=== PATIENT | male | born 1985 | race African-American/Black ===

== ENCOUNTER 2016-10-19 17:36 | Emergency (ER) | payer SELFPAY ==
[~2016-10-19] VITALS: Ht 175.3 cm; Wt 77.1 kg
[~2016-10-19 17:36] MED LIST: BUSP10TA PO; GABA-586 PO; LORA0.5T PO; TRAZ300T2 PO
[2016-10-19] MEDS ORDERED: IV NORMAL SALINE 1000ML BAG 1,000 ML IV ONE (18:00)
[2016-10-19 18:24] LABS: BASO % 1 % (0-3); EOS % 0 % (0-3); HEMATOCRIT 44.8 % (39.0-53.0); HEMOGLOBIN 15.2 g/dL (13.0-17.5); LYMPH # 0.7 x10^3/uL (1.0-4.8); LYMPH % 10 % (24-48); MEAN CORPUSCULAR HEMOGLOBIN 33 pg (25-35); MEAN CORPUSCULAR HGB CONC 34 g/dL (31-37); MEAN CORPUSCULAR VOLUME 98 fL (79-100); MONO % 7 % (0-9); NEUT % 83 % (31-73); PLATELET COUNT 166 x10^3/uL (140-400); RED BLOOD COUNT 4.58 x10^6/uL (4.30-5.70); RED CELL DISTRIBUTION WIDTH 13.5 % (11.5-14.5)
[2016-10-19 18:41] LABS: CALCIUM 8.9 mg/dL (8.5-10.1); CREATININE 1.2 mg/dL (0.7-1.3); GFR 87.2; POTASSIUM 4.1 mmol/L (3.5-5.1)
--- NOTE | 2016-10-19 18:41 | EKG ---
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
--- NOTE | 2016-10-19 18:53 | PHYS DOC ---
Past Medical History Past Medical History: Alcoholism, Depression, Other Additional Past Medical Histor: insomnia, NEUROPATHY Past Surgical History: No Surgical History Alcohol Use: Heavy Drug Use: None Adult General Chief Complaint Chief Complaint: SHORTNESS OF BREATH HPI HPI Patient is a 30 year old male with a history of bowel collision who presents with complaints of cough and shortness of breath that has been going on for months. He was seen yesterday at the clinic and giving breathing treatments and steroids but he has not had any improvement. Patient doesn't report a recent story is smoking but he used to smoke before. Patient denies any fevers, sick contacts, recent travel, or other symptoms. Review of Systems Review of Systems Constitutional: Denies fever or chills [] Eyes: Denies change in visual acuity, redness, or eye pain [] HENT: Yes to cough, nonbloody Respiratory: Yes to shortness of breath [] Cardiovascular: No chest pain, no swelling of extremities GI: Denies abdominal pain, nausea, vomiting, : Denies dysuria or hematuria [] Musculoskeletal: Denies back pain or joint pain [] Integument: Denies rash or skin lesions [] Neurologic: Denies headache, focal weakness or sensory changes [] Current Medications Current Medications Current Medications Medications (Trade) Dose Ordered Sig/Ela Start Time Stop Time Status Last Admin Dose Admin Info (Do NOT chart on this entry -- for MONITORING) 1 each PRN DAILY PRN 10/19/16 19:00 10/21/16 18:59 Iohexol (Omnipaque 300 Mg/ml) 75 ml 1X ONCE 10/19/16 19:00 10/19/16 19:01 DC 10/19/16 19:13 75 ML Sodium Chloride 1,000 ml @ 1,000 mls/hr 1X ONCE 10/19/16 18:00 10/19/16 18:59 DC 10/19/16 18:45 1,000 MLS/HR Thiamine HCl 100 mg/Sodium Chloride 51 ml @ 102 mls/hr 1X ONCE 10/19/16 19:00 10/19/16 19:29 DC 10/19/16 19:14 102 MLS/HR Allergies Allergies Allergies Coded Allergies Type Severity Reaction Last Updated Verified No Known Drug Allergies 05/09/13 No Physical Exam Physical Exam Constitutional: Well developed, well nourished, no acute distress, non-toxic appearance. [] HENT: Normocephalic, atraumatic, oropharynx moist, no oral exudates, nose normal. [] Eyes: conjunctiva normal, no discharge. [] Neck: Normal range of motion, no tenderness, supple, no stridor. No LAD, no meningeal signs Cardiovascular: Tachycardia, equal pulses, normal perfusion Lungs & Thorax: Bilateral breath sounds clear to auscultation, no tachypnea Abdomen: Bowel sounds normal, soft, no tenderness, no masses, no pulsatile masses. [] Skin: Warm, dry, no erythema, no rash. [] Back: No tenderness, no CVA tenderness. [] Extremities: No tenderness, no cyanosis, no signs of DVT, ROM intact, no edema. [] Neurologic: Alert and oriented X 3, normal motor function, no focal deficits noted. Patient ambulates in the ED with normal gait and without assistance Psychologic: Affect normal, judgement normal, mood normal. [] Current Patient Data Vital Signs Vital Signs Date Time Temp Pulse Resp B/P (MAP) Pulse Ox O2 Delivery O2 Flow Rate FiO2 10/19/16 17:50 98.1 115 22 117/77 (90) 99 Room Air 98.1 Lab Values Laboratory Tests Test 10/19/16 17:47 10/19/16 17:54 O2 Saturation 96 % (92-99) Arterial Blood pH 7.48 (7.35-7.45) H Arterial Blood pCO2 at Patient Temp 22 mmHg (35-46) L Arterial Blood pO2 at Patient Temp 88 mmHg (85-108) Arterial Blood HCO3 16 mmol/L (21-28) L Arterial Blood Base Excess -5 mmol/L (-3-3) L Oxyhemoglobin 95.7 % Methemoglobin 0.5 % (0.0-1.9) Carbon Monoxide, Quantitative 0.2 % (0.0-1.9) FiO2 21.0 White Blood Count 7.0 x10^3/uL (4.0-11.0) Red Blood Count 4.58 x10^6/uL (4.30-5.70) Hemoglobin 15.2 g/dL (13.0-17.5) Hematocrit 44.8 % (39.0-53.0) Mean Corpuscular Volume 98 fL (79-100) Mean Corpuscular Hemoglobin 33 pg (25-35) Mean Corpuscular Hemoglobin Concent 34 g/dL (31-37) Red Cell Distribution Width 13.5 % (11.5-14.5) Platelet Count 166 x10^3/uL (140-400) Neutrophils (%) (Auto) 83 % (31-73) H Lymphocytes (%) (Auto) 10 % (24-48) L Monocytes (%) (Auto) 7 % (0-9) Eosinophils (%) (Auto) 0 % (0-3) Basophils (%) (Auto) 1 % (0-3) Neutrophils # (Auto) 5.8 x10^3uL (1.8-7.7) Lymphocytes # (Auto) 0.7 x10^3/uL (1.0-4.8) L Monocytes # (Auto) 0.5 x10^3/uL (0.0-1.1) Eosinophils # (Auto) 0.0 x10^3/uL (0.0-0.7) Basophils # (Auto) 0.0 x10^3/uL (0.0-0.2) D-Dimer (Orly) 1.04 ug/mlFEU (0.00-0.50) H Sodium Level 140 mmol/L (136-145) Potassium Level 4.1 mmol/L (3.5-5.1) Chloride Level 104 mmol/L (98-107) Carbon Dioxide Level 22 mmol/L (21-32) Anion Gap 14 (6-14) Blood Urea Nitrogen 12 mg/dL (8-26) Creatinine 1.2 mg/dL (0.7-1.3) Estimated GFR (Cockcroft-Gault) 87.2 Glucose Level 101 mg/dL (70-99) H Calcium Level 8.9 mg/dL (8.5-10.1) Laboratory Tests 10/19/16 17:54 Laboratory Tests 10/19/16 17:54 EKG EKG 1800 tachycardia, no stemi, 120[] Radiology/Procedures Radiology/Procedures preliminary read: cardiomegaly, no infltrate/fracture/pneumothorax[] CT: no PE, dissection. Reactive nodes. Cardiomegaly Course & Med Decision Making Course & Med Decision Making Pertinent Labs and Imaging studies reviewed. (See chart for details), discussed with pt. I had long conversation with the patient regarding his chronic symptoms not ongoing for months. I talked to him about his cardiomegaly and my concerns that this may be related to alcohol abuse although I cannot be 100% certain. 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 For the time being I have recommended to the patient he abstain from alcohol, seek primary care and do NOT engage in strenous physical activities including sports. Pt understands and agrees to follow up as directed. List of clinics and resources will be provided to the patient. [] Dragon Disclaimer Dragon Disclaimer This electronic medical record was generated, in whole or in part, using a voice recognition dictation system. Departure Departure Impression: Primary Impression: Alcohol abuse Additional Impressions: Cardiomegaly Cardiomyopathy Disposition: ADMITTED INPATIENT Condition: STABLE Referrals: NO PCP (PCP) please follow up at one of the clinics in the list provided to you. Do not engage in strenous physical activity including sports. Please do not continue to drink alcohol Patient Instructions: Alcohol Problems, Cardiomyopathy Problem Qualifiers Idania LARSEN MD Oct 19, 2016 18:53
[2016-10-19] MEDS ORDERED: THIAMINE 100 MG in IV NORMAL SALINE 50ML 50 ML IV ONE (19:00)
[2016-10-19] MEDS ORDERED: IOHEXOL 300 MG/ML 75 ML VIAL IV ONE (19:00)
[2016-10-19] MEDS ORDERED: CONTRAST GIVEN MC PRN (19:00)
[2016-10-19 19:02] LABS: BASE EXCESS COOX -5 mmol/L (-3-3); CARBON MONOXIDE 0.2 % (0.0-1.9); HCO3 COOX 16 mmol/L (21-28); METHEMOGLOBIN 0.5 % (0.0-1.9); OXYHEMOGLOBIN 95.7 %; PCO2 COOX 22 mmHg (35-46); PH COOX 7.48 (7.35-7.45); PO2 COOX 88 mmHg (85-108); SAT O2 COOX 96 % (92-99); TOTAL HEMOGLOBIN 15.8 g/dL
--- NOTE | 2016-10-19 19:38 | RAD ---
EXAM: CT angiography of the chest with intravenous contrast. HISTORY: Shortness of air. TECHNIQUE: Computed tomographic images of the chest were obtained following the administration of 75 cc Omnipaque 300 intravenous contrast according to angiography protocol. Multiplanar reformatting was performed and 3-dimensional maximum intensity images were obtained. *One or more of the following individualized dose reduction techniques were utilized for this examination: 1. Automated exposure control. 2. Adjustment of the mA and/or kV according to patient size. 3. Use of iterative reconstruction technique. COMPARISON: None. FINDINGS: There is no evidence of pulmonary embolism, with limited evaluation of the lower lobe segmental and subsegmental pulmonary arteries due to suboptimal contrast opacification and respiratory motion. The aorta is normal in caliber. There is a standard aortic arch branching pattern. There is cardiomegaly. There are prominent mediastinal and hilar lymph nodes, likely physiologic or reactive. There is no pneumothorax or pleural effusion. There is no infiltrate or suspicious pulmonary nodule. There is left basilar atelectasis. There is bilateral gynecomastia. No suspicious osseous lesion is seen. The upper abdomen is unremarkable. IMPRESSION: 1. No evidence of pulmonary embolism, with limited evaluation of the segmental and subsegmental pulmonary artery branches due to suboptimal contrast opacification and respiratory motion. 2. Cardiomegaly. 3. Prominent mediastinal and hilar lymph nodes, likely physiologic or reactive. 4. Left lower lobe atelectasis. 5. Gynecomastia. Electronically signed by: Mary Gibson MD (10/19/2016 7:34 PM) [facility]
[2016-10-19 19:42] VITALS: BP 130/92
--- NOTE | 2016-10-20 08:10 | RAD ---
Exam performed: 2 views of the chest. Indication: dyspnea , shortness of breath and cough today Date of Service:10/19/2016 7:47 PM . Comparison : Two-view chest from -. Findings: PA and lateral radiographs of the chest reveals mild cardiomegaly. Pulmonary vascularity is unremarkable. The lungs are clear. No pleural fluid is seen. The visualized osseous structures are unremarkable. Impression: Mild cardiomegaly without acute pulmonary findings.
== END 2016-10-19 20:10 | disposition other institution (70) ==
LOC: ER 17:36
DX: I51.7 Cardiomegaly (principal); F10.10 Alcohol abuse, uncomplicated; I42.9 Cardiomyopathy, unspecified; F32.9 Major depressive disorder, single episode, unspecified; G62.9 Polyneuropathy, unspecified; G47.00 Insomnia, unspecified; Z87.891 Personal history of nicotine dependence
CPT/HCPCS: 36415; 36600; 71020; 71275; 80048; 82805; 85025; 85379; 93005; 96365; 99285; J7030; Q9967

== ENCOUNTER 2016-11-10 03:05 | Emergency (ER) | payer SELFPAY ==
[~2016-11-10] VITALS: Ht 175.3 cm; Wt 77.1 kg
[~2016-11-10 03:05] MED LIST changes: +ALPR0.5T PO; +FOLI1TAB16 PO; +FURO40TA4 PO; +MULT-245 PO; +THIA100T43 PO
[2016-11-10] MEDS ORDERED: BENZONATATE 100 MG CAPSULE. PO ONE (04:00)
[2016-11-10 04:19] LABS: BASO # 0.1 x10^3/uL (0.0-0.2); BASO % 1 % (0-3); EOS % 2 % (0-3); HEMATOCRIT 42.5 % (39.0-53.0); HEMOGLOBIN 13.7 g/dL (13.0-17.5); LYMPH # 2.3 x10^3/uL (1.0-4.8); LYMPH % 29 % (24-48); MEAN CORPUSCULAR HEMOGLOBIN 31 pg (25-35); MEAN CORPUSCULAR HGB CONC 32 g/dL (31-37); MEAN CORPUSCULAR VOLUME 96 fL (79-100); MONO % 7 % (0-9); NEUT % 62 % (31-73); PLATELET COUNT 215 x10^3/uL (140-400); RED BLOOD COUNT 4.41 x10^6/uL (4.30-5.70); RED CELL DISTRIBUTION WIDTH 13.7 % (11.5-14.5); WHITE BLOOD COUNT 7.9 x10^3/uL (4.0-11.0)
[2016-11-10] MEDS ORDERED: PROMETH/CODEINE 6.25/10MG 5 ML SYRUP. PO ONE (04:30)
[2016-11-10 04:34] LABS: CALCIUM 8.5 mg/dL (8.5-10.1); CREATININE 1.3 mg/dL (0.7-1.3); POTASSIUM 4.1 mmol/L (3.5-5.1)
[2016-11-10 04:40] LABS: ALBUMIN 2.7 g/dL (3.4-5.0); TOTAL BILIRUBIN 0.4 mg/dL (0.2-1.0); TOTAL PROTEIN 5.5 g/dL (6.4-8.2)
[2016-11-10 05:09] VITALS: BP 105/73
[2016-11-10] MEDS ORDERED: BENZ100C PO (05:26)
[2016-11-10] MEDS ORDERED: GUAI120L35 PO (05:26)
--- NOTE | 2016-11-10 06:44 | EKG ---
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
--- NOTE | 2016-11-10 07:18 | ED.ADGEN ---
Past Medical History Past Medical History: Alcoholism, Anxiety, CHF, Depression, Other Additional Past Medical Histor: insomnia, NEUROPATHY, ENLARGED HEART Past Surgical History: No Surgical History Alcohol Use: None Drug Use: None Adult General Chief Complaint Chief Complaint: COUGH HPI HPI Patient is a 31 year old man, history of severe cardiomyopathy with CHF, ejection fraction of 10-15 percent, alcohol abuse, who presents to the emergency department with a complaint of cough. Patient states she's been experiencing cough persistently over the past several weeks, states he was recently treated in the ICU and released and cough has continued. States the cough is primarily nonproductive, denies any fevers, any chills, any swelling extremities, any chest pain except with coughing, any nausea or vomiting, except "gagging", that occurs with persistent coughing, any focal weakness, numbness, tingling, vision changes or other complaints. States he been compliant with all medications. He states he has tried [id number]-nsr-[id number] remedies without relief for the cough. He presents this morning because he's been unable to sleep due to the persistence of coughing. Patient noted be mildly tachycardic, heart rate in the low 100s, oxygen saturation at 99% on room air, respiratory rate is 20 and unlabored, blood pressures are 1 teens over 70s, patient with frequent coughing in the ED. Review of Systems Review of Systems Constitutional: Denies fever or chills. [] Eyes: Denies change in visual acuity. [] HENT: Denies nasal congestion or sore throat. [] Respiratory: Cough, no shortness of breath. Cardiovascular: Denies chest pain or edema. [] GI: Denies abdominal pain, nausea, vomiting, bloody stools or diarrhea. [] : Denies dysuria. [] Musculoskeletal: Denies back pain or joint pain. [] Integument: Denies rash. [] Neurologic: Denies headache, focal weakness or sensory changes. [] Endocrine: Denies polyuria or polydipsia. [] Lymphatic: Denies swollen glands. [] Psychiatric: Denies depression or anxiety. [] Current Medications Current Medications Current Medications Medications (Trade) Dose Ordered Sig/Ela Start Time Stop Time Status Last Admin Dose Admin Benzonatate (Tessalon Perle) 100 mg 1X ONCE 11/10/16 04:00 11/10/16 04:01 DC 11/10/16 04:02 100 MG Promethazine HCl/ Codeine (Phenergan With Codeine) 5 ml 1X ONCE 11/10/16 04:30 11/10/16 04:31 DC 11/10/16 04:43 5 ML Allergies Allergies Allergies Coded Allergies Type Severity Reaction Last Updated Verified I S O L A T I O N *CONTACT* Allergy Unknown 10/30/16 Yes No Known Medication Allergies Allergy Unknown 10/30/16 Yes Physical Exam Physical Exam Constitutional: Well developed, well nourished, no acute distress, non-toxic appearance. [] HENT: Normocephalic, atraumatic, bilateral external ears normal, oropharynx moist, mildly injected, no exudates no oral exudates, nose normal. [] Eyes: PERRLA, EOMI, conjunctiva normal, no discharge. [] Neck: Normal range of motion, no tenderness, supple, no stridor. [] Cardiovascular:Heart rate regular rhythm, no murmur, S1, S2, soft heart sounds, no rubs or gallops. [] Lungs & Thorax: Bilateral breath sounds clear to auscultation, no wheezing, rhonchi, rales. No chest or crepitus or tenderness. [] Abdomen: Bowel sounds normal, soft, no tenderness, no rebound, rigidity, no guarding, no masses, no pulsatile masses. [] Skin: Warm, dry, no erythema, no rash. [] Back: No tenderness, no CVA tenderness. [] Extremities: No tenderness, no cyanosis, no clubbing, ROM intact, no edema. Negative Homans sign.[] Neurologic: Alert and oriented X 3, normal motor function, normal sensory function, no focal deficits noted. [] Psychologic: Affect normal, judgement normal, mood normal. [] Current Patient Data Vital Signs Vital Signs Date Time Temp Pulse Resp B/P (MAP) Pulse Ox O2 Delivery O2 Flow Rate FiO2 11/10/16 05:09 104 20 105/73 (84) 98 Room Air 11/10/16 03:25 97.8 97.8 Lab Values Laboratory Tests Test 11/10/16 04:10 White Blood Count 7.9 x10^3/uL (4.0-11.0) Red Blood Count 4.41 x10^6/uL (4.30-5.70) Hemoglobin 13.7 g/dL (13.0-17.5) Hematocrit 42.5 % (39.0-53.0) Mean Corpuscular Volume 96 fL (79-100) Mean Corpuscular Hemoglobin 31 pg (25-35) Mean Corpuscular Hemoglobin Concent 32 g/dL (31-37) Red Cell Distribution Width 13.7 % (11.5-14.5) Platelet Count 215 x10^3/uL (140-400) Neutrophils (%) (Auto) 62 % (31-73) Lymphocytes (%) (Auto) 29 % (24-48) Monocytes (%) (Auto) 7 % (0-9) Eosinophils (%) (Auto) 2 % (0-3) Basophils (%) (Auto) 1 % (0-3) Neutrophils # (Auto) 4.9 x10^3uL (1.8-7.7) Lymphocytes # (Auto) 2.3 x10^3/uL (1.0-4.8) Monocytes # (Auto) 0.5 x10^3/uL (0.0-1.1) Eosinophils # (Auto) 0.1 x10^3/uL (0.0-0.7) Basophils # (Auto) 0.1 x10^3/uL (0.0-0.2) Sodium Level 144 mmol/L (136-145) Potassium Level 4.1 mmol/L (3.5-5.1) Chloride Level 108 mmol/L (98-107) H Carbon Dioxide Level 28 mmol/L (21-32) Anion Gap 8 (6-14) Blood Urea Nitrogen 14 mg/dL (8-26) Creatinine 1.3 mg/dL (0.7-1.3) Estimated GFR (Cockcroft-Gault) 79.0 BUN/Creatinine Ratio 11 (6-20) Glucose Level 93 mg/dL (70-99) Calcium Level 8.5 mg/dL (8.5-10.1) Total Bilirubin 0.4 mg/dL (0.2-1.0) Aspartate Amino Transferase (AST) 31 U/L (15-37) Alanine Aminotransferase (ALT) 105 U/L (16-63) H Alkaline Phosphatase 81 U/L (46-116) Troponin I Quantitative 0.054 ng/mL (0.000-0.055) HU-Bbt-T-Type Natriuretic Peptide 1883 pg/mL (0-124) H Total Protein 5.5 g/dL (6.4-8.2) L Albumin 2.7 g/dL (3.4-5.0) L Albumin/Globulin Ratio 1.0 (1.0-1.7) Laboratory Tests 11/10/16 04:10 Laboratory Tests 11/10/16 04:10 EKG EKG EC: Sinus tachycardia, heart rate 101 beats/minute, left atrial abnormality noted, patient with QTC of 465, [place] 182, QRS of 80, to her abnormalities noted as stated, evidence of significant ventricular hypertrophy, no ST elevations or depressions, abnormal ECG, does not meet STEMI criteria.[] As interpreted by me. Radiology/Procedures Radiology/Procedures Chest x-ray: One view: Patient with profound cardiomegaly, straightening left heart border, no significant effusions, infiltrates, no pneumothorax, no soft tissue or bony abnormalities identified. When compared to prior chest x-rays, cardiomegaly is unchanged. As interpreted by me.[] Course & Med Decision Making Course & Med Decision Making Pertinent Labs and Imaging studies reviewed. (See chart for details) Patient with mildly tachycardic, states "my heart is always like that", he is denying any shortness of breath, laboratory studies obtained due to patient's history, along with chest x-ray, did not reveal any concerning changes, patient was noted to have an elevated proBNP at 1884, which is higher than prior, patient is denying any shortness of breath, and clinically appears stable in the emergency department, cough is significantly improved after receiving Tessalon Perle and a dose of Phenergan With Codeine in the emergency department. Patient states that he wants his cough treated and wants to leave. He performed an ambulatory trial in the emergency department, oxygen saturation remains in the high 90s, heart rate in the low 100s, and he did not exhibit any dyspnea and exertion other concerning symptoms. I advised patient on proper use of medications, patient was given prescription for Tessalon Perle, and guaifenesin with codeine, he hasn't applied to follow-up with his primary care provider on Sunday at . To continue medications as directed, to return to the emergency department if any new or concerning symptoms develop. Patient voiced understanding and agreement with plan as stated, discharged home with prescriptions and precautions as above. Dragon Disclaimer Dragon Disclaimer This electronic medical record was generated, in whole or in part, using a voice recognition dictation system. Departure Impression: Primary Impression: Cough Disposition: 01 HOME, SELF-CARE Condition: IMPROVED Scripts Guaifenesin/Codeine Phosphate (Codeine-Guaifen 10-100 mg/5 ml) 120 Ml Liquid 5 ML PO PRN Q6HRS Y for COUGH, #120 LIQUID Prov: FILI LUTZ DO 11/10/16 Benzonatate (TESSALON PERLE) 100 Mg Capsule 100 MG PO PRN TID Y for COUGH, #14 CAP Prov: FILI LUTZ DO 11/10/16 FILI LUTZ DO Nov 10, 2016 07:18
--- NOTE | 2016-11-10 07:22 | RAD ---
Indication cough and shortness of breath. A single view of the chest was obtained and is compared to an examination 12 days earlier. Generalized cardiomegaly is again seen. There is no congestive heart failure. There is no focal infiltrate. There is no pleural fluid or pneumothorax. IMPRESSION: Unchanged cardiomegaly. No acute or focal process seen in the chest
== END 2016-11-10 05:38 | disposition home or self-care (01) ==
LOC: ER 03:05
DX: R05 Cough (principal); I50.9 Heart failure, unspecified; F10.20 Alcohol dependence, uncomplicated; G62.9 Polyneuropathy, unspecified; I42.9 Cardiomyopathy, unspecified; Z91.041 Radiographic dye allergy status
CPT/HCPCS: 36415; 71010; 80053; 83880; 84484; 85025; 93005; 99285-25